=== PATIENT | male | born 2000 ===

== ENCOUNTER 2020-08-26 12:02 | Emergency (ER) | payer SELFPAY ==
[2020-08-26 12:15] VITALS: BP 141/82; TEMP 98.3
[2020-08-26] MEDS ORDERED: TYLENOL 500MG500 MG (12:24)
[2020-08-26] MEDS ORDERED: AMOXICILLIN875 MG PO (13:34)
[2020-08-26 13:56] VITALS: PULSE 67
== END 2020-08-26 13:56 | disposition home or self-care (01) ==
LOC: COL.ER 12:02
DX: H66.92 Otitis media, unspecified, left ear (principal)